=== PATIENT | female | born 1990 | race Caucasian/White ===

== ENCOUNTER 2016-11-30 18:37 | Emergency (ER) | payer OTHER ==
[2016-11-30 18:47] VITALS: RESP 16; O2SAT 98
[2016-11-30] MEDS ORDERED: PROPARACAINE 0.5% 15 ML OPHT DROP ONE (19:43)
[2016-11-30] MEDS ORDERED: FLUORESCEIN SODIUM 1 MG STRIP OP ONE (19:44)
--- NOTE | 2016-11-30 20:43 | EDPHY ---
H & P Time Seen by Provider: 11/30/16 20:02 HPI/ROS: CHIEF COMPLAINT: foreign body sensation left eye HISTORY OF PRESENT ILLNESS: 25-year-old female with tetanus up-to-date who does not were contact lenses presents emergency department complaining of left eye foreign body sensation. 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 Patient reports his flushed dry multiple times and still feels like there is something in her eye. She reports lots of tearing, no discharge, no blurred vision, no eye pain. She feels like there is grit in her eye. Smoking Status: Never smoked Physical Exam: Visual Acuity: Noted from Nurse's notes. Left eye Pupils: PERRLA, EOMI, no nystagmus, no trauma, no injection. Lids: No edema or swelling Skin: No proptosis, no periorbital erythema or swelling, no vesicles Conjunctivae: injected, not icteric, no discharge Cornea: Exam with slit lamp and fluoroscein shows corneal abrasion at 11:00 position, negative Snehal Anterior chamber: Normal, no hyphema or hypopyon Constitutional: Initial Vital Signs Temperature (C) 36.8 C 11/30/16 18:43 Heart Rate 88 11/30/16 18:43 Respiratory Rate 16 11/30/16 18:43 Blood Pressure 141/92 H 11/30/16 18:43 O2 Sat (%) 98 11/30/16 18:43 O2 Delivery Mode Room Air Allergies/Adverse Reactions: No Known Allergies Allergy (Unverified 11/30/16 18:43) Home Medications: Medication Instructions Recorded Erythromycin 0.5% 1 nunu OP QID #10 gm 11/30/16 MDM/Departure - Depart Disposition: Home, Routine, Self-Care Clinical Impression: Corneal abrasion Qualifiers: Encounter type: initial encounter Laterality: left Qualified Code(s): S05.02XA - Injury of conjunctiva and corneal abrasion without foreign body, left eye, initial encounter Condition: Good Instructions: Corneal Abrasion (ED) Additional Instructions: Use antibiotic ointment on your left eye 4 times a day for 7 days. Follow up with the fabrication department supervisor for symptoms that are not improving in the next day. You may use saline eyedrops as much as you would like for comfort. Return to the emergency department for any worsening symptoms, new symptoms or concerns. Prescriptions: Erythromycin 0.5% 1 nunu OP QID #10 gm Referrals: Fredy Stephens MD [Medical Doctor] - As per Instructions (Agency Development Manager on-call )
[2016-11-30 21:08] VITALS: BP 120/65; PULSE 71; TEMP 97.7
== END 2016-11-30 21:08 | disposition home or self-care (01) ==
DX: S05.02XA Injury of conjunctiva and corneal abrasion without foreign body, left eye, initial encounter (principal); X58.XXXA Exposure to other specified factors, initial encounter; Y99.8 Other external cause status; Y93.K3 Activity, grooming and shearing an animal